=== PATIENT | female | born 1940 | race Caucasian/White ===

== ENCOUNTER 2025-07-14 16:20 | Emergency (ER) | payer MEDICARE, OTHER ==
[2025-07-14 18:35] VITALS: BP 165/84; PULSE 71
== END 2025-07-14 18:50 | disposition home or self-care (01) ==
LOC: JP.ED 16:20
DX: S82.044A Nondisplaced comminuted fracture of right patella, initial encounter for closed fracture (principal); S00.81XA Abrasion of other part of head, initial encounter; I48.91 Unspecified atrial fibrillation; K21.9 Gastro-esophageal reflux disease without esophagitis; M19.90 Unspecified osteoarthritis, unspecified site; Z95.2 Presence of prosthetic heart valve; Z79.82 Long term (current) use of aspirin; Z79.01 Long term (current) use of anticoagulants; Z79.899 Other long term (current) drug therapy; W18.30XA Fall on same level, unspecified, initial encounter
CPT/HCPCS: 70450; 73562-26-RT; 73562-RT; 99284